=== PATIENT | female | born 1945 | race Hispanic/Latino ===

== ENCOUNTER 2017-04-04 07:28 | Day surgery (SDC) | payer MEDICARE ==
[2017-03-26 12:23] VITALS: BMI 32.1
[2017-04-04] MEDS ORDERED: Sodium Chloride 0.9% 1,000 ML IV SCH (08:00)
[2017-04-04 08:10] VITALS: TEMP 98.2
[2017-04-04] MEDS ORDERED: Propofol 10 mg/ml Inj (20 ML) ONE ×2 (08:34→09:14)
[2017-04-04 10:00] VITALS: O2SAT 99
[2017-04-04 10:07] VITALS: BP 143/79; PULSE 58; RESP 18
== END 2017-04-04 10:24 | disposition home or self-care (01) ==
LOC: ENDO 07:28
PROVIDERS: ATTEND Specialist
DX: Z12.11 Encounter for screening for malignant neoplasm of colon (principal); K63.5 Polyp of colon; K31.7 Polyp of stomach and duodenum; K57.30 Diverticulosis of large intestine without perforation or abscess without bleeding; K64.8 Other hemorrhoids; I10 Essential (primary) hypertension; E03.9 Hypothyroidism, unspecified; K21.9 Gastro-esophageal reflux disease without esophagitis
CPT/HCPCS: 43251; 45380; 88305; 88342; J2001; J2704; J3010; J7040 ×2